=== PATIENT | female | born 1990 | race Two or more races ===

== ENCOUNTER 2023-04-28 21:12 | Emergency (ER) | payer MEDICAID ==
[~2023-04-28] VITALS: Ht 157.5 cm; Wt 77.4 kg
[2023-04-28 22:09] VITALS: BP 112/50; PULSE 79; RESP 14; TEMP 98.5; O2SAT 99
[2023-04-29] MEDS ORDERED: amoxicillin 250mg capsule PO ONE (01:00)
[2023-04-29] MEDS ORDERED: AMOX-101 PO (01:00)
== END 2023-04-29 01:10 | disposition home or self-care (01) ==
LOC: ER 21:13
DX: K08.89 Other specified disorders of teeth and supporting structures (principal); Z88.1 Allergy status to other antibiotic agents
CPT/HCPCS: 99283

== ENCOUNTER 2023-08-19 01:38 | Emergency (ER) | payer MEDICAID ==
[~2023-08-19] VITALS: Ht 157.5 cm; Wt 81.2 kg
[2023-08-19 01:49] VITALS: BP 103/49; TEMP 99
[2023-08-19] MEDS ORDERED: albuterol 2.5 MG/3 ML nebule NEB ONE (01:50)
[2023-08-19] MEDS ORDERED: ALBU90AE INH (01:51)
[2023-08-19 02:05] VITALS: PULSE 65; RESP 16; O2SAT 96
[2023-08-19 02:11] VITALS: PULSE 72; RESP 16; O2SAT 100
== END 2023-08-19 02:45 | disposition home or self-care (01) ==
LOC: ER 01:38
DX: J45.991 Cough variant asthma (principal); Z88.1 Allergy status to other antibiotic agents; Z79.899 Other long term (current) drug therapy
CPT/HCPCS: 94640; 94760; 99283

== ENCOUNTER 2024-10-27 10:27 | Emergency (ER) | payer MEDICAID ==
[~2024-10-27] VITALS: Ht 157.5 cm; Wt 84.6 kg
[~2024-10-27 10:27] MED LIST: ALBU90AE INH
[2024-10-27 10:29] VITALS: BP 116/67
[2024-10-27 11:58] VITALS: PULSE 87; RESP 17; TEMP 99; O2SAT 98
== END 2024-10-27 12:11 | disposition home or self-care (01) ==
LOC: ER 10:27
DX: J06.9 Acute upper respiratory infection, unspecified (principal); J45.909 Unspecified asthma, uncomplicated; Z88.1 Allergy status to other antibiotic agents
CPT/HCPCS: 87502; 87503; 99283